=== PATIENT | female | born 1955 | race Caucasian/White ===

== ENCOUNTER 2018-01-10 12:21 | Inpatient (IN) | payer OTHER ==
[~2018-01-10] VITALS: Ht 149.9 cm; Wt 45.3 kg
[2018-01-10] MEDS ORDERED: LORazepam 2 MG/ML VIAL IVP ONE (12:45)
[2018-01-10] MEDS ORDERED: ACETAMINOPHEN 500 MG TABLET PO ONE (12:45)
[2018-01-10] MEDS ORDERED: CefTRIAXone SODIUM 1 GM in DEXTROSE 5%-WATER 10 ML IV ONE (12:45)
[2018-01-10] MEDS ORDERED: SODIUM CHLORIDE 0.9% 2,000 ML IV ONE (12:45)
[2018-01-10 12:48] LABS: GLUCOSE,POINT OF CARE 77 MG/DL (70-110)
[2018-01-10 13:08] LABS: BASOPHILS % (AUTO) 0.9 % (0.0-2.0); EOSINOPHILS % (AUTO) 1.8 % (1.0-6.0); LYMPHOCYTES # (AUTO) 0.8 K/uL (1.0-4.8); LYMPHOCYTES % (AUTO) 14.7 % (22.0-44.0); MEAN CORPUSCULAR HEMOGLOBIN 34.9 pg (26.0-34.0); MEAN CORPUSCULAR HGB CONC 33.4 G/dL (31.0-37.0); MEAN CORPUSCULAR VOLUME 104 fL (80-100); MONOCYTES # (AUTO) 0.5 K/uL (0.1-1.0); NEUTROPHILS % (AUTO) 73.6 % (40.0-70.0); PLATELET COUNT (AUTO) 196 K/uL (150-450); RED BLOOD CELL COUNT(AUTO) 3.17 MIL/uL (4.00-5.20); RED CELL DISTRIBUTION WIDTH 17.6 % (11.5-14.5)
[2018-01-10 13:16] LABS: ANION GAP 8 mmol/L (8-16); CALCIUM, TOTAL 9.6 mg/dL (8.8-10.5); CARBON DIOXIDE 27 mmol/L (22-29); CHLORIDE 103 mmol/L (98-107); CREATININE 1.02 mg/dL (0.60-1.30); GLOMERULAR FILTR. RATE CALC 55 mL/min (>60); GLUCOSE,RANDOM 79 mg/dL (70-110); POTASSIUM 3.7 mmol/L (3.5-5.1); SODIUM SERUM 138 mmol/L (136-145); UREA NITROGEN, BLOOD 16 mg/dL (7-18)
[2018-01-10 13:22] LABS: ALANINE AMINOTRANSFERASE 16 U/L (12-78); ALKALINE PHOSPHATASE 51 U/L (46-116); ASPARTATE AMINOTRANSFERASE 21 U/L (15-37); B-TYPE NATRIURETIC PEPTIDE 72 pg/mL (0-100); BILIRUBIN,TOTAL 0.4 mg/dL (0.1-1.0); LIPASE 119 U/L (73-393); TOTAL PROTEIN, SERUM 6.8 g/dL (6.4-8.2)
[2018-01-10 13:24] LABS: LACTIC ACID 0.7 mmol/L (0.4-2.0)
[2018-01-10 14:35] LABS: AMPHET/METH SCREEN,URINE NEGATIVE (NEGATIVE); BARBITURATE SCREEN, URINE NEGATIVE (NEGATIVE); BENZODIAZEPINES SCREEN,URINE POSITIVE (NEGATIVE); CANNABINOID SCREEN,URINE POSITIVE (NEGATIVE); COCAINE SCREEN,URINE NEGATIVE (NEGATIVE); METHADONE SCREEN, URINE NEGATIVE (NEGATIVE); OPIATE SCREEN,URINE POSITIVE (NEGATIVE); PHENCYCLIDINE SCREEN,URINE NEGATIVE (NEGATIVE)
[2018-01-10 14:40] LABS: APPEARANCE,URINE CLEAR (CLEAR); BILIRUBIN,URINE NEGATIVE (NEGATIVE); GLUCOSE, URINE (UA) NEGATIVE (NEGATIVE); KETONES,URINE NEGATIVE (NEGATIVE); LEUKOCYTE ESTERASE ,URINE NEGATIVE (NEGATIVE); NITRATE,URINE NEGATIVE (NEGATIVE); OCCULT BLOOD,URINE NEGATIVE (NEGATIVE); PROTEIN,URINE NEGATIVE (NEGATIVE); UROBILINOGEN,URINE 0.2 mg/dL (<=1.0)
[2018-01-10 15:06] LABS: BACTERIA,URINE None Seen /HPF (None Seen); RBC,URINE None Seen /HPF (0-2); WBC,URINE 0-2 /HPF (0-5)
[2018-01-10 15:07] LABS: SQUAMOUS EPITHELIAL CELL,UR Rare /LPF (None Seen)
[2018-01-10] MEDS ORDERED: 0.9% SODIUM CHLORIDE 10 ML SYRINGE IVP PRN (15:45)
[2018-01-10] MEDS ORDERED: ONDANSETRON HCL 4 MG/2 ML VIAL IVP PRN ×2 (15:45→21:00)
[2018-01-10] MEDS ORDERED: AZITHROMYCIN 500 MG/NS 250 ML IV ONE (15:45)
[2018-01-10] MEDS ORDERED: ACETAMINOPHEN 325 MG TABLET PO PRN (15:45)
[2018-01-10 18:06] VITALS: BP 118/68
[2018-01-10 19:35] VITALS: BP 142/80
[2018-01-10] MEDS ORDERED: VANCOMYCIN HCL 750 MG in DEXTROSE 5%-WATER 250 ML IV ONE (21:00)
[2018-01-10] MEDS ORDERED: MAGNESIUM SULFATE 2 GM, MVI, ADULT NO.1 WITH VIT K 10 ML, THIAMINE HCL 100 MG, FOLIC AC... IV ONE ×5 (21:00)
[2018-01-10] MEDS ORDERED: BISACODYL 10 MG RECTAL RECTAL SUPPOSITORY PR PRN (21:00)
[2018-01-10] MEDS ORDERED: SODIUM CHLORIDE 0.9% 250 ML IV ONE (21:57)
[2018-01-10 23:23] VITALS: BP 138/79
[2018-01-11 04:34] VITALS: BP 137/86
[2018-01-11 06:14] LABS: ANION GAP 11 mmol/L (8-16); CALCIUM, TOTAL 8.9 mg/dL (8.8-10.5); CARBON DIOXIDE 22 mmol/L (22-29); CHLORIDE 105 mmol/L (98-107); CREATININE 0.86 mg/dL (0.60-1.30); GLOMERULAR FILTR. RATE CALC > 60 mL/min (>60); GLUCOSE,RANDOM 74 mg/dL (70-110); POTASSIUM 3.7 mmol/L (3.5-5.1); SODIUM SERUM 138 mmol/L (136-145); UREA NITROGEN, BLOOD 11 mg/dL (7-18)
[2018-01-11 07:21] VITALS: BP 162/92
[2018-01-11] MEDS: VANCOMYCIN HCL 500 MG in DEXTROSE 5%-WATER 100 ML IV SCH ×2 (08:57→19:56)
[2018-01-11] MEDS: PANTOPRAZOLE SODIUM 40 MG/VIAL IVP SCH (08:58)
[2018-01-11 11:10] VITALS: BP 147/77
[2018-01-11] MEDS: CefTRIAXone SODIUM 1 GM in DEXTROSE 5%-WATER 10 ML IV SCH (13:44)
[2018-01-11 15:50] VITALS: BP 162/88
[2018-01-11 19:50] VITALS: BP 156/83
[2018-01-11] MEDS ORDERED: CEFD125S3 PO (20:37)
[2018-01-11] MEDS: ACETAMINOPHEN 325 MG TABLET PO PRN (22:13)
[2018-01-11 23:03] VITALS: BP 138/75
[2018-01-12 03:17] VITALS: BP 149/70
[2018-01-12 06:55] LABS: ANION GAP 10 mmol/L (8-16); CARBON DIOXIDE 23 mmol/L (22-29); CHLORIDE 102 mmol/L (98-107); CREATININE 0.91 mg/dL (0.60-1.30); GLOMERULAR FILTR. RATE CALC > 60 mL/min (>60); GLUCOSE,RANDOM 92 mg/dL (70-110); POTASSIUM 3.7 mmol/L (3.5-5.1); SODIUM SERUM 135 mmol/L (136-145); UREA NITROGEN, BLOOD 7 mg/dL (7-18); VANCOMYCIN,RANDOM 11.7 mcg/mL (25.0-50.0)
[2018-01-12 07:48] VITALS: BP_SYST 146; BP_SYST 167; BP_DIAS 80; BP_DIAS 90
[2018-01-12] MEDS: VANCOMYCIN HCL 500 MG in DEXTROSE 5%-WATER 100 ML IV SCH (09:26)
[2018-01-12] MEDS: PANTOPRAZOLE SODIUM 40 MG/VIAL IVP SCH (09:26)
[2018-01-12 11:31] VITALS: BP 160/76
[2018-01-12] MEDS: ACETAMINOPHEN 325 MG TABLET PO PRN ×2 (11:58→20:28)
[2018-01-12] MEDS: DOXYCYCLINE HYCLATE 100 MG CAPSULE PO SCH ×2 (14:10→20:27)
[2018-01-12] MEDS: CefTRIAXone SODIUM 1 GM in DEXTROSE 5%-WATER 10 ML IV SCH (14:12)
[2018-01-12 16:17] VITALS: BP 152/93
[2018-01-12 19:53] VITALS: BP 164/95
[2018-01-12] MEDS: VANCOMYCIN HCL 1.25 GM in DEXTROSE 5%-WATER 250 ML IV SCH (20:27)
[2018-01-12 23:21] VITALS: BP 154/83
[2018-01-13 03:54] VITALS: BP 162/89
[2018-01-13 07:42] VITALS: BP 147/95
[2018-01-13] MEDS: VANCOMYCIN HCL 1.25 GM in DEXTROSE 5%-WATER 250 ML IV SCH (07:55)
[2018-01-13] MEDS: DOXYCYCLINE HYCLATE 100 MG CAPSULE PO SCH (07:55)
[2018-01-13] MEDS: PANTOPRAZOLE SODIUM 40 MG/VIAL IVP SCH (07:56)
[2018-01-13 08:39] LABS: BASOPHILS % (AUTO) 0.6 % (0.0-2.0); EOSINOPHILS % (AUTO) 3.2 % (1.0-6.0); HEMATOCRIT 35.6 % (36-46); LYMPHOCYTES # (AUTO) 0.8 K/uL (1.0-4.8); LYMPHOCYTES % (AUTO) 13.8 % (22.0-44.0); MEAN CORPUSCULAR HEMOGLOBIN 34.8 pg (26.0-34.0); MEAN CORPUSCULAR HGB CONC 33.8 G/dL (31.0-37.0); MEAN CORPUSCULAR VOLUME 103 fL (80-100); MONOCYTES # (AUTO) 0.5 K/uL (0.1-1.0); MONOCYTES % (AUTO) 8.5 % (2.0-9.0); NEUTROPHILS # (AUTO) 4.5 K/uL (1.8-7.7); NEUTROPHILS % (AUTO) 73.9 % (40.0-70.0); PLATELET COUNT (AUTO) 211 K/uL (150-450); RED BLOOD CELL COUNT(AUTO) 3.46 MIL/uL (4.00-5.20); RED CELL DISTRIBUTION WIDTH 17.5 % (11.5-14.5)
[2018-01-13] MEDS ORDERED: CEFDINIR 300 MG PO SCH (09:00)
[2018-01-13] MEDS ORDERED: *PATIENT'S OWN MED [ENTER DRUG, DOSE, FREQUENCY IN COMMENTS] CLINICAL ONE (09:00)
[2018-01-13 09:06] LABS: ANION GAP 7 mmol/L (8-16); CALCIUM, TOTAL 8.8 mg/dL (8.8-10.5); CARBON DIOXIDE 27 mmol/L (22-29); CHLORIDE 96 mmol/L (98-107); GLOMERULAR FILTR. RATE CALC > 60 mL/min (>60); GLUCOSE,RANDOM 100 mg/dL (70-110); POTASSIUM 3.5 mmol/L (3.5-5.1); SODIUM SERUM 130 mmol/L (136-145); UREA NITROGEN, BLOOD 8 mg/dL (7-18)
[2018-01-13] MEDS: ACETAMINOPHEN 325 MG TABLET PO PRN (11:29)
[2018-01-13 11:34] VITALS: BP 176/94
[2018-01-13] MEDS ORDERED: HydrALAZINE HCL 20 MG/ML VIAL IVP PRN (11:45)
[2018-01-13 12:35] VITALS: BP 146/70
[2018-01-13] MEDS ORDERED: DOXY150T PO (13:00)
[2018-01-15 12:14] LABS: LEGIONELLA PNEUMO AG URINE Negative (Negative)
== END 2018-01-13 15:30 | disposition home or self-care (01) | DRG 871 ==
LOC: EMS 12:24 → 5S 16:10
PROVIDERS: ADMIT Internal Medicine; ATTEND Internal Medicine
DX: A41.9 Sepsis, unspecified organism (principal); G92 Toxic encephalopathy; J18.9 Pneumonia, unspecified organism; N39.0 Urinary tract infection, site not specified; G89.29 Other chronic pain; M54.5 Low back pain; R65.20 Severe sepsis without septic shock; I10 Essential (primary) hypertension; I25.10 Atherosclerotic heart disease of native coronary artery without angina pectoris; I25.2 Old myocardial infarction; Z79.899 Other long term (current) drug therapy; Z95.5 Presence of coronary angioplasty implant and graft; Z72.89 Other problems related to lifestyle
CPT/HCPCS: 51702; 70450; 83605; 84145; 84443; 87040; 87449; 87899; 93005; 96365; 96367; 96375; 99291; C9113; G0480; J0360; J0456; J0696; J2060; J3370; J3411; J3475; J3490; J7030; J7050; J7060

== ENCOUNTER 2022-08-15 15:39 | Inpatient (IN) | payer MEDICARE, OTHER ==
[~2022-08-15] VITALS: Ht 162.6 cm; Wt 50.3 kg
[~2022-08-15 15:39] MED LIST: CEFD300C18 PO; DOXY-469 PO
[2022-08-15 16:46] LABS: BASOPHILS % (AUTO) 0.3 % (0.0-2.0); EOSINOPHILS % (AUTO) 0.1 % (1.0-6.0); HEMATOCRIT 38.8 % (36-46); HEMOGLOBIN 13.3 g/dL (12.0-16.0); LYMPHOCYTES # (AUTO) 0.6 K/uL (1.0-4.8); LYMPHOCYTES % (AUTO) 4.5 % (22.0-44.0); MEAN CORPUSCULAR HEMOGLOBIN 30.4 pg (26.0-34.0); MEAN CORPUSCULAR HGB CONC 34.2 G/dL (31.0-37.0); MEAN CORPUSCULAR VOLUME 89 fL (80-100); MONOCYTES # (AUTO) 0.9 K/uL (0.1-1.0); MONOCYTES % (AUTO) 6.8 % (2.0-9.0); NEUTROPHILS # (AUTO) 11.5 K/uL (1.8-7.7); PLATELET COUNT (AUTO) 216 K/uL (150-450); RED BLOOD CELL COUNT(AUTO) 4.37 MIL/uL (4.00-5.20); RED CELL DISTRIBUTION WIDTH 16.8 % (11.5-14.5)
[2022-08-15 16:47] LABS: NEUTROPHILS % (AUTO) 88.3 % (40.0-70.0)
[2022-08-15 17:08] LABS: CARBON DIOXIDE 27 mmol/L (22-29); CHLORIDE 85 mmol/L (98-107); POTASSIUM 5.2 mmol/L (3.5-5.1)
[2022-08-15 17:09] LABS: ALANINE AMINOTRANSFERASE 25 U/L (12-78); ALBUMIN 3.9 g/dL (3.4-5.0); ALKALINE PHOSPHATASE 98 U/L (46-116); ANION GAP 8 mmol/L (8-16); ASPARTATE AMINOTRANSFERASE 54 U/L (15-37); BILIRUBIN,TOTAL 0.8 mg/dL (0.1-1.0); CALCIUM, TOTAL 9.7 mg/dL (8.8-10.5); CREATININE 1.12 mg/dL (0.60-1.30); GLOMERULAR FILTR. RATE CALC 48 mL/min (>60); GLUCOSE,RANDOM 77 mg/dL (70-110); THYROID STIMULATING HORMONE 15.51 uIU/mL (0.36-3.74); TOTAL PROTEIN, SERUM 7.8 g/dL (6.4-8.2); UREA NITROGEN, BLOOD 19 mg/dL (7-18)
[2022-08-15 17:11] LABS: SODIUM SERUM 120 mmol/L (136-145)
[2022-08-15 17:26] LABS: COVID AG,FIA SOURCE NASOPHARYNGEAL
[2022-08-15 17:53] LABS: APPEARANCE,URINE HAZY (CLEAR); BILIRUBIN,URINE NEGATIVE (NEGATIVE); GLUCOSE, URINE (UA) NEGATIVE (NEGATIVE); KETONES,URINE NEGATIVE (NEGATIVE); LEUKOCYTE ESTERASE ,URINE LARGE (NEGATIVE); NITRATE,URINE NEGATIVE (NEGATIVE); OCCULT BLOOD,URINE SMALL (NEGATIVE); PH,URINE 6.5 (5.0-8.0); PROTEIN,URINE 100-200,SEE CONFIRM mg/dL (NEGATIVE); SPECIFIC GRAVITIY, URINE 1.017 (1.003-1.030)
[2022-08-15 17:55] LABS: SODIUM,URINE RANDOM 13 mmol/l (20-110)
[2022-08-15 18:00] LABS: AMPHET/METH SCREEN,URINE NEGATIVE (NEGATIVE); BARBITURATE SCREEN, URINE NEGATIVE (NEGATIVE); BENZODIAZEPINES SCREEN,URINE NEGATIVE (NEGATIVE); CANNABINOID SCREEN,URINE NEGATIVE (NEGATIVE); COCAINE SCREEN,URINE NEGATIVE (NEGATIVE); METHADONE SCREEN, URINE NEGATIVE (NEGATIVE); OPIATE SCREEN,URINE NEGATIVE (NEGATIVE); PHENCYCLIDINE SCREEN,URINE NEGATIVE (NEGATIVE)
[2022-08-15] MEDS ORDERED: ACETAMINOPHEN 325 MG TABLET PO PRN ×2 (18:00→19:15)
[2022-08-15] MEDS ORDERED: ONDANSETRON HCL 4 MG/2 ML VIAL IVP PRN ×2 (18:00→19:15)
[2022-08-15] MEDS ORDERED: 0.9% SODIUM CHLORIDE 10 ML SYRINGE IVP PRN (18:00)
[2022-08-15 18:03] LABS: BACTERIA,URINE Many /HPF (None Seen); SQUAMOUS EPITHELIAL CELL,UR Few /LPF (None Seen); SULFOSALICYLIC ACID,URINE 2+ (Negative); WBC,URINE 51-100 /HPF (0-5)
[2022-08-15 18:17] LABS: OSMOLALITY,URINE 361 mOsm/kg (50-1500)
[2022-08-15 18:40] VITALS: BP 132/74
[2022-08-15] MEDS ORDERED: LEVOTHYROXINE SODIUM 75 MCG TABLET PO ONE (19:15)
[2022-08-15] MEDS ORDERED: BISACODYL 10 MG RECTAL RECTAL SUPPOSITORY PR PRN (19:15)
[2022-08-15] MEDS ORDERED: ALBUTEROL SULFATE 2.5 MG/0.5 ML NEB SOLUTION NEB PRN (19:15)
[2022-08-15] MEDS ORDERED: HYDROCODONE/ACETAMINOPHEN 5-325 MG TABLET PO PRN (19:15)
[2022-08-15] MEDS ORDERED: MORPHINE SULFATE 2 MG/ML SYRINGE IVP PRN (19:15)
[2022-08-15] MEDS ORDERED: MAGNESIUM HYDROXIDE SUSPENSION 30 ML UDCUP PO PRN (19:15)
[2022-08-15] MEDS ORDERED: IPRATROPIUM BROMIDE 0.5 MG/2.5 ML NEB SOLUTION NEB PRN (19:15)
[2022-08-15 19:32] VITALS: BP 117/68
[2022-08-15] MEDS ORDERED: CefTRIAXone 1 GM/DEXTROSE 50 ML IV ONE (20:15)
[2022-08-15] MEDS ORDERED: AZITHROMYCIN 500 MG/NS 250 ML IV ONE (20:15)
[2022-08-15] MEDS ORDERED: SODIUM CHLORIDE 0.9% 1,000 ML ONE ×2 (20:30→23:39)
[2022-08-15 23:21] VITALS: BP 101/56
[2022-08-15] MEDS: HEPARIN SODIUM,PORCINE 5,000 UNITS/ML VIAL SQ SCH (23:40)
[2022-08-16 00:38] LABS: CALCIUM, TOTAL 8.6 mg/dL (8.8-10.5); CREATININE 1.3 mg/dL (0.60-1.30); POTASSIUM 5.8 mmol/L (3.5-5.1)
[2022-08-16] MEDS: SODIUM CHLORIDE 0.9% 1,000 ML IV SCH ×2 (00:45→14:33)
[2022-08-16] MEDS: ZOLPIDEM TARTRATE 5 MG TABLET PO PRN (01:16)
[2022-08-16 04:12] VITALS: BP 114/52
[2022-08-16 06:12] LABS: BASOPHILS % (AUTO) 0.3 % (0.0-2.0); EOSINOPHILS % (AUTO) 0.1 % (1.0-6.0); HEMOGLOBIN 11.8 g/dL (12.0-16.0); LYMPHOCYTES # (AUTO) 0.8 K/uL (1.0-4.8); LYMPHOCYTES % (AUTO) 11.5 % (22.0-44.0); MEAN CORPUSCULAR HEMOGLOBIN 30.9 pg (26.0-34.0); MEAN CORPUSCULAR HGB CONC 34.7 G/dL (31.0-37.0); MEAN CORPUSCULAR VOLUME 89 fL (80-100); MONOCYTES # (AUTO) 0.9 K/uL (0.1-1.0); MONOCYTES % (AUTO) 12.3 % (2.0-9.0); NEUTROPHILS # (AUTO) 5.5 K/uL (1.8-7.7); NEUTROPHILS % (AUTO) 75.8 % (40.0-70.0); PLATELET COUNT (AUTO) 167 K/uL (150-450); RED BLOOD CELL COUNT(AUTO) 3.82 MIL/uL (4.00-5.20); RED CELL DISTRIBUTION WIDTH 16.8 % (11.5-14.5)
[2022-08-16 06:29] LABS: ALBUMIN 3.1 g/dL (3.4-5.0); BILIRUBIN,TOTAL 0.5 mg/dL (0.1-1.0); CALCIUM, TOTAL 8.6 mg/dL (8.8-10.5); CREATININE 1.41 mg/dL (0.60-1.30); POTASSIUM 4.9 mmol/L (3.5-5.1); TOTAL PROTEIN, SERUM 6.7 g/dL (6.4-8.2)
[2022-08-16 08:01] VITALS: BP 104/66
[2022-08-16] MEDS: HEPARIN SODIUM,PORCINE 5,000 UNITS/ML VIAL SQ SCH ×2 (08:35→16:41)
[2022-08-16] MEDS: PANTOPRAZOLE SODIUM 40 MG/VIAL IVP SCH (08:35)
[2022-08-16 12:41] VITALS: BP 103/93
[2022-08-16 12:44] LABS: MAGNESIUM 1.8 mg/dL (1.80-2.40); PHOSPHORUS 3.8 mg/dL (2.5-4.9)
[2022-08-16 15:52] VITALS: BP 89/60
[2022-08-16 19:39] VITALS: BP 92/68
[2022-08-16] MEDS ORDERED: DIGOXIN 250 MCG/ML 2 ML AMP IVP ONE (19:45)
[2022-08-16] MEDS: APIXABAN 5 MG TABLET PO SCH (20:07)
[2022-08-16 20:38] VITALS: BP 93/60
[2022-08-16] MEDS: CefTRIAXone 1 GM/DEXTROSE 50 ML IV SCH (21:32)
[2022-08-16] MEDS ORDERED: AMIODARONE HCL 150 MG in DEXTROSE 5%-WATER 97 ML IV ONE (22:15)
[2022-08-16] MEDS ORDERED: AMIODARONE HCL 360 MG in DEXTROSE 5%-WATER 242.8 ML IV ONE (22:30)
[2022-08-17 00:09] VITALS: BP 96/66
[2022-08-17] MEDS ORDERED: AMIODARONE HCL 540 MG in DEXTROSE 5%-WATER 239.2 ML IV ONE (04:30)
[2022-08-17] MEDS: SODIUM CHLORIDE 0.9% 1,000 ML IV SCH ×2 (04:32→17:46)
[2022-08-17 04:44] VITALS: BP 114/74
[2022-08-17 07:26] VITALS: BP 122/79
[2022-08-17] MEDS: PANTOPRAZOLE SODIUM 40 MG/VIAL IVP SCH (08:30)
[2022-08-17] MEDS: MULTIVITAMINS, THERAPEUTIC TABLET PO SCH (08:30)
[2022-08-17] MEDS: APIXABAN 5 MG TABLET PO SCH (08:30)
[2022-08-17 09:55] LABS: CALCIUM, TOTAL 8.6 mg/dL (8.8-10.5); CREATININE 1.22 mg/dL (0.60-1.30); POTASSIUM 3.9 mmol/L (3.5-5.1)
[2022-08-17 11:22] VITALS: BP 111/56
[2022-08-17 15:21] VITALS: BP 124/80
[2022-08-17] MEDS ORDERED: HEPARIN SODIUM,PORCINE 5,000 UNITS/ML VIAL IVP PRN (16:15)
[2022-08-17 16:36] LABS: BASOPHILS % (AUTO) 1.2 % (0.0-2.0); EOSINOPHILS % (AUTO) 0.8 % (1.0-6.0); HEMOGLOBIN 11.3 g/dL (12.0-16.0); LYMPHOCYTES # (AUTO) 0.7 K/uL (1.0-4.8); MEAN CORPUSCULAR HEMOGLOBIN 29.9 pg (26.0-34.0); MEAN CORPUSCULAR HGB CONC 32.4 G/dL (31.0-37.0); MEAN CORPUSCULAR VOLUME 92 fL (80-100); MONOCYTES # (AUTO) 0.7 K/uL (0.1-1.0); MONOCYTES % (AUTO) 13.3 % (2.0-9.0); NEUTROPHILS # (AUTO) 3.6 K/uL (1.8-7.7); NEUTROPHILS % (AUTO) 70.7 % (40.0-70.0); PLATELET COUNT (AUTO) 174 K/uL (150-450); RED BLOOD CELL COUNT(AUTO) 3.79 MIL/uL (4.00-5.20); RED CELL DISTRIBUTION WIDTH 17.3 % (11.5-14.5)
[2022-08-17 16:52] LABS: PROTHROMBIN TIME 10.3 SEC (9.4-11.6)
[2022-08-17] MEDS: ATORVASTATIN CALCIUM 40 MG TABLET PO SCH (17:36)
[2022-08-17] MEDS: ASPIRIN 81 MG DR TABLET PO SCH (17:36)
[2022-08-17] MEDS: HEPARIN SODIUM 25000 UNITS/D5W 250 ML IV PRN (17:37)
[2022-08-17 20:23] VITALS: BP 129/88
[2022-08-17] MEDS: CefTRIAXone 1 GM/DEXTROSE 50 ML IV SCH (20:42)
[2022-08-17] MEDS: METOPROLOL TARTRATE 25 MG TABLET PO SCH (20:42)
[2022-08-17] MEDS ORDERED: AMIODARONE HCL 750 MG in DEXTROSE 5%-WATER 485 ML IV SCH (22:30)
[2022-08-17] MEDS: HEPARIN SODIUM,PORCINE 5,000 UNITS/ML VIAL IVP PRN (22:49)
[2022-08-18] VITALS (8 sets, daily range): BP systolic 118–140; BP diastolic 66–96
[2022-08-18 05:29] LABS: BASOPHILS % (AUTO) 1.4 % (0.0-2.0); HEMATOCRIT 33.2 % (36-46); LYMPHOCYTES % (AUTO) 14.8 % (22.0-44.0); MEAN CORPUSCULAR HEMOGLOBIN 30.7 pg (26.0-34.0); MEAN CORPUSCULAR HGB CONC 33.2 G/dL (31.0-37.0); MEAN CORPUSCULAR VOLUME 93 fL (80-100); MONOCYTES # (AUTO) 0.8 K/uL (0.1-1.0); MONOCYTES % (AUTO) 11.2 % (2.0-9.0); NEUTROPHILS # (AUTO) 4.8 K/uL (1.8-7.7); NEUTROPHILS % (AUTO) 70.6 % (40.0-70.0); PLATELET COUNT (AUTO) 155 K/uL (150-450); RED BLOOD CELL COUNT(AUTO) 3.59 MIL/uL (4.00-5.20); RED CELL DISTRIBUTION WIDTH 17.6 % (11.5-14.5)
[2022-08-18 05:44] LABS: CALCIUM, TOTAL 8.2 mg/dL (8.8-10.5); CHOL/HDL RATIO 2.5 (3.9-5.7); CREATININE 1.14 mg/dL (0.60-1.30); MAGNESIUM 1.8 mg/dL (1.80-2.40); PHOSPHORUS 2.9 mg/dL (2.5-4.9); POTASSIUM 4.3 mmol/L (3.5-5.1)
[2022-08-18] MEDS: LEVOTHYROXINE SODIUM 50 MCG TABLET PO SCH (06:10)
[2022-08-18] MEDS: METOPROLOL TARTRATE 25 MG TABLET PO SCH ×2 (08:40→20:55)
[2022-08-18] MEDS: MULTIVITAMINS, THERAPEUTIC TABLET PO SCH (08:41)
[2022-08-18] MEDS: ATORVASTATIN CALCIUM 40 MG TABLET PO SCH (08:41)
[2022-08-18] MEDS: PANTOPRAZOLE SODIUM 40 MG/VIAL IVP SCH (08:41)
[2022-08-18] MEDS: ASPIRIN 81 MG DR TABLET PO SCH (08:42)
[2022-08-18] MEDS: SODIUM CHLORIDE 0.9% 1,000 ML IV SCH (09:41)
[2022-08-18] MEDS: HEPARIN SODIUM,PORCINE 5,000 UNITS/ML VIAL IVP PRN (15:37)
[2022-08-18] MEDS ORDERED: HEPARIN SODIUM 1000 UNITS/NS 1,000 ML ONE (15:57)
[2022-08-18] MEDS ORDERED: VERAPAMIL HCL 2.5 MG/ML 2 ML VIAL ONE (15:57)
[2022-08-18] MEDS ORDERED: NITROGLYCERIN 50 MG/D5% WATER 250 ML ONE (15:57)
[2022-08-18] MEDS ORDERED: LIDOCAINE/PF 1% 30 ML VIAL ONE (15:57)
[2022-08-18] MEDS ORDERED: SODIUM BICARBONATE 50 MEQ/50 ML VIAL ONE (15:57)
[2022-08-18] MEDS ORDERED: IOHEXOL 300 MG/ML 100 ML VIAL ONE (15:57)
[2022-08-18] MEDS ORDERED: FentaNYL CITRATE PF 100 MCG/2 ML VIAL ONE (16:36)
[2022-08-18] MEDS ORDERED: MIDAZOLAM HCL 2 MG/2 ML VIAL ONE (16:36)
[2022-08-18] MEDS ORDERED: FentaNYL CITRATE PF 100 MCG/2 ML VIAL IVP ONE ×2 (16:45)
[2022-08-18] MEDS ORDERED: LIDOCAINE 1% 30 ML/SOD BICARB 8.4% 4 ML SQ ONE (16:45)
[2022-08-18] MEDS ORDERED: IOHEXOL 300 MG/ML 100 ML VIAL IARTER ONE (16:45)
[2022-08-18] MEDS ORDERED: HEPARIN SODIUM 1000 UNITS/NS 1,000 ML IARTER ONE (16:45)
[2022-08-18] MEDS ORDERED: NITROGLYCERIN/D5W 50 MG/250 ML IV BOTTLE IARTER ONE (17:00)
[2022-08-18] MEDS ORDERED: VERAPAMIL HCL 2.5 MG/ML 2 ML VIAL IARTER ONE (17:00)
[2022-08-18] MEDS ORDERED: HEPARIN SODIUM,PORCINE 1,000 UNITS/ML 10 ML VIAL IARTER ONE (17:00)
[2022-08-18] MEDS ORDERED: CLOPIDOGREL BISULFATE 300 MG TABLET PO ONE (17:00)
[2022-08-18] MEDS: AMIODARONE HCL 200 MG TABLET PO SCH (21:10)
[2022-08-18] MEDS: CefTRIAXone 1 GM/DEXTROSE 50 ML IV SCH (21:10)
[2022-08-18] MEDS ORDERED: SODIUM CHLORIDE 0.9% 250 ML IV ONE (21:50)
[2022-08-18] MEDS: ZOLPIDEM TARTRATE 5 MG TABLET PO PRN (22:01)
[2022-08-19 00:37] VITALS: BP 151/91
[2022-08-19 04:15] VITALS: BP 142/70
[2022-08-19] MEDS: LEVOTHYROXINE SODIUM 50 MCG TABLET PO SCH (06:59)
[2022-08-19 07:33] VITALS: BP 145/76
[2022-08-19 07:40] LABS: BASOPHILS % (AUTO) 0.6 % (0.0-2.0); EOSINOPHILS % (AUTO) 3.4 % (1.0-6.0); HEMATOCRIT 32.4 % (36-46); HEMOGLOBIN 10.6 g/dL (12.0-16.0); LYMPHOCYTES # (AUTO) 0.6 K/uL (1.0-4.8); LYMPHOCYTES % (AUTO) 9.6 % (22.0-44.0); MEAN CORPUSCULAR HEMOGLOBIN 30.1 pg (26.0-34.0); MEAN CORPUSCULAR HGB CONC 32.9 G/dL (31.0-37.0); MEAN CORPUSCULAR VOLUME 92 fL (80-100); MONOCYTES # (AUTO) 0.6 K/uL (0.1-1.0); MONOCYTES % (AUTO) 9.5 % (2.0-9.0); NEUTROPHILS # (AUTO) 4.7 K/uL (1.8-7.7); NEUTROPHILS % (AUTO) 76.9 % (40.0-70.0); PLATELET COUNT (AUTO) 187 K/uL (150-450); RED BLOOD CELL COUNT(AUTO) 3.53 MIL/uL (4.00-5.20); RED CELL DISTRIBUTION WIDTH 17.1 % (11.5-14.5)
[2022-08-19 08:10] LABS: ALBUMIN 2.8 g/dL (3.4-5.0); BILIRUBIN,TOTAL 0.2 mg/dL (0.1-1.0); CALCIUM, TOTAL 8.5 mg/dL (8.8-10.5); CREATININE 1.1 mg/dL (0.60-1.30); MAGNESIUM 1.7 mg/dL (1.80-2.40); PHOSPHORUS 3.2 mg/dL (2.5-4.9); POTASSIUM 4.5 mmol/L (3.5-5.1); TOTAL PROTEIN, SERUM 6.2 g/dL (6.4-8.2)
[2022-08-19] MEDS: PANTOPRAZOLE SODIUM 40 MG/VIAL IVP SCH (08:30)
[2022-08-19] MEDS: AMIODARONE HCL 200 MG TABLET PO SCH (08:34)
[2022-08-19] MEDS: METOPROLOL TARTRATE 25 MG TABLET PO SCH (08:34)
[2022-08-19] MEDS: MULTIVITAMINS, THERAPEUTIC TABLET PO SCH (08:34)
[2022-08-19] MEDS: ATORVASTATIN CALCIUM 40 MG TABLET PO SCH (08:34)
[2022-08-19] MEDS: ASPIRIN 81 MG DR TABLET PO SCH (08:35)
[2022-08-19] MEDS: HEPARIN SODIUM 25000 UNITS/D5W 250 ML IV PRN (08:37)
[2022-08-19] MEDS ORDERED: CLOPIDOGREL BISULFATE 75 MG TABLET PO SCH (09:00)
[2022-08-19] MEDS ORDERED: FUROSEMIDE 20 MG TABLET PO SCH (11:00)
[2022-08-19 11:30] VITALS: BP 134/74
[2022-08-19] MEDS ORDERED: FURO20 PO (14:48)
[2022-08-19] MEDS ORDERED: LEVO50 PO (14:48)
[2022-08-19] MEDS ORDERED: CEFD300C18 PO (14:49)
[2022-08-19] MEDS ORDERED: METO25 PO (14:49)
[2022-08-19] MEDS ORDERED: AMIO200T68 PO (14:50)
[2022-08-19] MEDS ORDERED: APIX5TAB PO (14:50)
[2022-08-19] MEDS ORDERED: ATOR40TA28 PO (14:50)
[2022-08-19] MEDS ORDERED: CLOP75TA60 PO (14:50)
[2022-08-19 15:21] VITALS: BP 132/70
== END 2022-08-19 17:52 | disposition home or self-care (01) | DRG 246 ==
LOC: EMS 15:40 → 5S 18:15
PROVIDERS: ADMIT Hospitalist; ATTEND Hospitalist
PROC: 027034Z Dilation of Coronary Artery, One Artery with Drug-eluting Intraluminal Device, Percutaneous Approach (ICD-10-PCS; principal; 2022-08-18)
PROC: 4A023N7 Measurement of Cardiac Sampling and Pressure, Left Heart, Percutaneous Approach (ICD-10-PCS; 2022-08-18)
PROC: B2111ZZ Fluoroscopy of Multiple Coronary Arteries using Low Osmolar Contrast (ICD-10-PCS; 2022-08-18)
DX: T82.855A Stenosis of coronary artery stent, initial encounter (principal); G92.8 Other toxic encephalopathy; I21.4 Non-ST elevation (NSTEMI) myocardial infarction; E87.1 Hypo-osmolality and hyponatremia; N39.0 Urinary tract infection, site not specified; N17.9 Acute kidney failure, unspecified; E87.5 Hyperkalemia; E86.0 Dehydration; B96.20 Unspecified Escherichia coli [E. coli] as the cause of diseases classified elsewhere; E03.9 Hypothyroidism, unspecified; F17.210 Nicotine dependence, cigarettes, uncomplicated; E86.1 Hypovolemia; F41.9 Anxiety disorder, unspecified; I48.91 Unspecified atrial fibrillation; I11.9 Hypertensive heart disease without heart failure; Y71.8 Miscellaneous cardiovascular devices associated with adverse incidents, not elsewhere classified; I25.2 Old myocardial infarction; Z79.899 Other long term (current) drug therapy; Y92.89 Other specified places as the place of occurrence of the external cause
CPT/HCPCS: 51702; 71045; 80048; 80053; 80061; 80307; 81001; 81002; 82533; 83735; 83930; 83935; 84100; 84133; 84295; 84300; 84439; 84443; 84484; 85025; 85610; 85730; 87040; 87086; 87186; 92920; 92928; 93005; 93306; 97110; 97116; 97162; 97163; 97167; 97530; 97535; 99291; C9113; G0480; J0282; J0456; J0696; J1160; J1644; J2250; J2405; J3010; J3490; J7030; J7050; J7060; Q9967; 36415-L1; 36415-TC; Z7610

== ENCOUNTER → 2022-09-05 | Outpatient (CLI) | payer MEDICARE, OTHER ==
[~2022-09-05] VITALS: Ht 157.5 cm; Wt 45.5 kg
[~2022-09-05] MED LIST changes: +AMIO200T68 PO; +APIX5TAB PO; +ATOR40TA28 PO; +CLOP75TA60 PO; -DOXY-469 PO; +FURO20 PO; +LEVO50 PO; +METO25 PO
[2022-09-05 14:33] VITALS: BP 111/78
== END | disposition home or self-care (01) ==
LOC: SRCNTR 14:12
PROVIDERS: ATTEND Internal Medicine
DX: Z09 Encounter for follow-up examination after completed treatment for conditions other than malignant neoplasm (principal); I48.0 Paroxysmal atrial fibrillation; I10 Essential (primary) hypertension; E03.9 Hypothyroidism, unspecified; I25.2 Old myocardial infarction
CPT/HCPCS: G0463; Z7500

== ENCOUNTER → 2022-12-12 | Outpatient (CLI) | payer MEDICARE, OTHER | END | disposition home or self-care (01) | LOC: SRCNTR 14:02 | PROVIDERS: ATTEND Internal Medicine | DX: I48.0 Paroxysmal atrial fibrillation (principal); I10 Essential (primary) hypertension; I08.3 Combined rheumatic disorders of mitral, aortic and tricuspid valves; Z82.49 Family history of ischemic heart disease and other diseases of the circulatory system; Z79.01 Long term (current) use of anticoagulants; Z79.899 Other long term (current) drug therapy | CPT/HCPCS: Q3014 ==

== ENCOUNTER → 2023-03-20 | Outpatient (CLI) | payer MEDICARE, OTHER ==
[~2023-03-20] VITALS: Ht 157.5 cm; Wt 45.0 kg
[~2023-03-20] MED LIST changes: +MEMA10TA11 PO
[2023-03-20 14:41] VITALS: BP 114/74; PULSE 55; RESP 16; TEMP 98.1; O2SAT 97
== END | disposition home or self-care (01) ==
LOC: SRCNTR 14:22
PROVIDERS: ATTEND Internal Medicine
DX: I48.0 Paroxysmal atrial fibrillation (principal); I25.10 Atherosclerotic heart disease of native coronary artery without angina pectoris; I10 Essential (primary) hypertension; Z86.39 Personal history of other endocrine, nutritional and metabolic disease; Z86.79 Personal history of other diseases of the circulatory system
CPT/HCPCS: G0463; Z7500

== ENCOUNTER → 2023-09-11 | Outpatient (CLI) | payer MEDICARE, OTHER ==
[~2023-09-11] MED LIST changes: -CEFD300C18 PO; -MEMA10TA11 PO; +MEMA10TA24 PO
== END | disposition home or self-care (01) ==
LOC: SRCNTR 13:23
PROVIDERS: ATTEND Internal Medicine
DX: I48.0 Paroxysmal atrial fibrillation (principal); I10 Essential (primary) hypertension; E03.9 Hypothyroidism, unspecified; I21.4 Non-ST elevation (NSTEMI) myocardial infarction; Z79.899 Other long term (current) drug therapy; Z88.0 Allergy status to penicillin; Z88.8 Allergy status to other drugs, medicaments and biological substances
CPT/HCPCS: Q3014